=== PATIENT | male | born 1975 | race Caucasian/White ===

== ENCOUNTER 2016-05-04 14:13 | Emergency (ER) | payer MEDICAID, OTHER ==
[2016-05-04] MEDS ORDERED: DEXAMETHASONE 10 MG/ML VIAL PO STA (15:35)
[2016-05-04] MEDS ORDERED: CHERRY SYRUP 10 ML UDC PO ONE (15:37)
[2016-05-04] MEDS ORDERED: DEXAMETHASONE 10 MG/ML VIAL ONE (15:37)
== END 2016-05-04 15:47 | disposition home or self-care (01) ==
DX: M75.51 Bursitis of right shoulder (principal); M25.521 Pain in right elbow; Z87.891 Personal history of nicotine dependence
CPT/HCPCS: 99283; A9270

== ENCOUNTER 2016-05-18 12:54 | Outpatient (CLI) | payer MEDICAID | END 2016-05-18 12:55 | disposition home or self-care (01) | DX: M75.101 Unspecified rotator cuff tear or rupture of right shoulder, not specified as traumatic (principal); M67.813 Other specified disorders of tendon, right shoulder ==

== ENCOUNTER 2016-07-31 07:49 | Day surgery (SDC) | payer MEDICAID ==
[~2016-07-31 07:49] MED LIST: ceFAZolin 2 GM/50 ML 50 ML IV ONE
[2016-07-31] MEDS ORDERED: LACTATED RINGERS 1,000 ML IV ONE ×3 (08:02→13:41)
[2016-07-31] MEDS ORDERED: BUPIVACAINE 0.5%-EPI 1:200000 PF 30 ML VIAL SUBQ ONE (10:18)
[2016-07-31] MEDS ORDERED: LIDOCAINE-MPF 2% 5 ML VIAL IM ONE (11:00)
[2016-07-31] MEDS ORDERED: PROPOFOL 200 MG/20 ML VIAL IVP ONE (11:00)
[2016-07-31] MEDS ORDERED: ROCURONIUM 50 MG/5 ML VIAL IVP ONE (11:00)
[2016-07-31] MEDS ORDERED: ePHEDrine 50 MG/ML AMP IVP ONE (11:00)
[2016-07-31] MEDS ORDERED: MIDAZOLAM 2 MG/2 ML VIAL IVP ONE (11:00)
[2016-07-31] MEDS ORDERED: ACETAMINOPHEN 1,000 MG/100 ML VIAL IV ONE (11:00)
[2016-07-31] MEDS ORDERED: DEXAMETHASONE 4 MG/ML VIAL IVP ONE (11:00)
[2016-07-31] MEDS ORDERED: ONDANSETRON 4 MG/2 ML VIAL IVP ONE (11:00)
[2016-07-31] MEDS ORDERED: KETOROLAC 30 MG/ML VIAL IVP ONE (11:00)
[2016-07-31] MEDS ORDERED: SUCCINYLCHOLINE 200 MG/10 ML VIAL IVP ONE (11:00)
[2016-07-31] MEDS ORDERED: fentaNYL 250 MCG/5 ML VIAL IVP ONE (11:00)
[2016-07-31] MEDS: HYDROmorphone 1 MG/ML SYRINGE ONE ×2 (12:43→12:51)
== END 2016-07-31 07:50 | disposition home or self-care (01) ==
PROC: 0RQJ0ZZ Repair Right Shoulder Joint, Open Approach (ICD-10-PCS; principal; 2016-07-31 09:00)
DX: M24.411 Recurrent dislocation, right shoulder (principal); S43.401A Unspecified sprain of right shoulder joint, initial encounter; X50.9XXA Other and unspecified overexertion or strenuous movements or postures, initial encounter; M77.11 Lateral epicondylitis, right elbow; F41.9 Anxiety disorder, unspecified; G89.29 Other chronic pain; F43.10 Post-traumatic stress disorder, unspecified
CPT/HCPCS: 23455; 85025; 86850; 86900; 86901; 86920; C1713; J0131; J0690; J1170; J3010; J7120

== ENCOUNTER 2018-02-16 12:53 | Emergency (ER) | payer MEDICAID ==
[2018-02-16 13:05] VITALS: BP 151/101
--- NOTE | 2018-02-16 13:06 | ED Physician Documentation ---
PD HPI DYSPNEA - Stated complaint Stated Complaint: COUGH - Chief complaint Chief Complaint: Resp - History obtained from History obtained from: Patient, Family - History of Present Illness Timing - onset: Other (42-year-old gentleman without history of cardiac or pulmonary disease presents with a week's worth of cough productive of clear but thick sputum and left-sided chest rattling with shortness of breath especially at night but no fevers or chills. His is sick with a similar illness.) Review of Systems Constitutional: denies: Fever, Chills Nose: reports: Rhinorrhea / runny nose Throat: denies: Sore throat Cardiac: denies: Chest pain / pressure, Palpitations Respiratory: reports: Dyspnea, Cough. denies: Hemoptysis GI: denies: Abdominal Pain PD PAST MEDICAL HISTORY - Past Medical History Cardiovascular: None Respiratory: None Endocrine/Autoimmune: None GI: None : None HEENT: None Psych: None Musculoskeletal: Other Derm: Psoriasis - Past Surgical History Past Surgical History: Yes General: Appendectomy Ortho: Spine surgery - Present Medications Home Medications: Ambulatory Orders Medication Instructions Recorded Confirmed OLANZapine [Zyprexa] 1 tab PO DAILY 05/04/16 07/31/16 Hydrocodone Bit/Homatrop Me-Br 5 - 10 ml PO Q4HR PRN #120 ml 02/16/18 [Hydrocodone-Homatropine Syrup] RX: predniSONE [Prednisone] 60 mg PO DAILY 5 Days #15 tablet 02/16/18 - Allergies Allergies/Adverse Reactions: Allergies Allergy/AdvReac Type Severity Reaction Status Date / Time No Known Drug Allergies Allergy Verified 05/04/16 14:27 - Social History Does the pt smoke?: No Smoking Status: Former smoker Does the pt drink ETOH?: No Does the pt have substance abuse?: No - Immunizations Immunizations are current?: Yes PD ED PE NORMAL - Vitals Vital signs reviewed: Yes - General General: Alert and oriented X 3, No acute distress - HEENT HEENT: Ears normal, Pharynx benign - Neck Neck: Supple, no meningeal sign, No bony TTP - Cardiac Cardiac: RRR, No murmur - Respiratory Respiratory: No respiratory distress, Clear bilaterally - Abdomen Abdomen: Non tender - Psych Psych: Normal mood, Normal affect Results - Vitals Vitals: Vital Signs - 24 hr 02/16/18 12:59 Temperature 36.8 C Heart Rate 96 Respiratory 18 Rate Blood Pressure 151/101 H O2 Saturation 98 Oxygen O2 Source Room air - Rads (name of study) 2v CXR Radiology: EMP read contemporaneously (normal) Departure - Departure Disposition: 01 Home, Self Care Clinical Impression: Bronchitis Condition: Good Record reviewed to determine appropriate education?: Yes Instructions: ED Upper Resp Infec No Abx Tx Prescriptions: Hydrocodone Bit/Homatrop Me-Br [Hydrocodone-Homatropine Syrup] 5 - 10 ml PO Q4HR PRN #120 ml PRN Reason: Cough RX: predniSONE [Prednisone] 60 mg PO DAILY 5 Days #15 tablet Comments: Call your doctor to arrange a follow-up appointment, make the next available appointment. In the interim, return anytime if worse or if new symptoms develop. Your blood pressure was elevated today on check into the emergency department. This does not mean that you have hypertension, it is a common phenomenon to come to the emergency department and have elevated blood pressure. I recommend that you see your primary care physician within the week to have it rechecked when you are feeling better. Discharge Date/Time: 02/16/18 13:49
--- NOTE | 2018-02-16 13:45 | XRAY Report ---
Reason: productive cough Procedure Date: 02/16/2018 Accession Number: [id number] / [id number] Procedure: XR - Chest 2 View X-Ray CPT Code: 19341 FULL RESULT: EXAM: CHEST RADIOGRAPHY EXAM DATE: 02/16/2018 01:29 PM. CLINICAL HISTORY: Productive cough. COMPARISON: 08/30/2015. TECHNIQUE: 2 views. FINDINGS: Lungs/Pleura: No focal opacities evident. No pleural effusion. No pneumothorax. Normal volumes. Mediastinum: Heart and mediastinal contours are unremarkable. Other: None. IMPRESSION: Normal 2-view chest radiography. [facility]
--- NOTE | 2018-02-16 14:34 | ED Physician Documentation ---
ED Addendum - Addendum Addendum: 02/16/18 14:33 Took call From [facility] pharmacy, the hydrocodone elixir is not covered. Changed to Tylenol with codeine elixir 120/12 per 5 mL, 5 mL p.o. every 6 hours as needed cough number 120 mL.
== END 2018-02-16 13:49 | disposition home or self-care (01) ==
LOC: ED 12:53
DX: Z87.891 Personal history of nicotine dependence (principal); J40 Bronchitis, not specified as acute or chronic
CPT/HCPCS: 71046; 99281; 99283